=== PATIENT | male | born 1940 | race Asian ===

== ENCOUNTER 2017-09-18 08:37 | Emergency (ER) | payer OTHER ==
--- NOTE | 2017-09-18 08:39 | PDOC ---
History of Present Illness - General Chief Complaint: Injury Stated Complaint: LEFT KNEE INJURY S/P FALL Time Seen by Provider: 09/18/17 08:39 - History of Present Illness Initial Comments: 09/18/17 08:52 77yo male presents ambulatory from home c/o L knee pain. States he was playing with has [employer] last night when he fell landing on the L knee cap. States pain to the L knee. States pain when going up and down stairs, but able to ambulate. Did not take any medication for pain and denies wanting medication now. States he did apply ice to the knee, but pain in the knee over night. Denies all other trauma or complaints. No sutton, neck pain, back pain. No cp/sob/ cough/abd pain/n/v/d. No dysuria. Denies head injury or LOC. NO symptoms prior to falling. States orthopedist is at [facility] PMHx: HTN, HLD, DM Past History - Past Medical History Allergies/Adverse Reactions: Allergies Allergy/AdvReac Type Severity Reaction Status Date / Time cortisone [Cortisone] Allergy Severe Swelling Verified 09/18/17 08:39 NSAIDS (Non-Steroidal AdvReac Intermediate Verified 09/18/17 09:04 Anti-Inflamma Home Medications: Ambulatory Orders Metformin HCl [Metformin HCl ER] 500 mg PO TID 06/19/14 Simvastatin 10 mg PO HS 06/19/14 Gabapentin 0 mg PO HS 05/08/15 Glucosamine Sulfate Dipot Chlr [Glucosamine] 1,000 mg PO BID 05/08/15 Losartan Potassium [Cozaar] 0 mg PO DAILY 05/08/15 Nabumetone [Relafen -] 500 mg PO WEEKLY PRN 05/08/15 New Chapter Prostate 1 PO BID 05/08/15 Anemia: No Asthma: No Cancer: Yes (PROSTATE CANCER-PRESENTLY RECEEIVING RADIATION THERAPY & METFORMIN) Cardiac Disorders: No CVA: No COPD: No CHF: No Dementia: No Diabetes: No GI Disorders: Yes (HX ULCER-BLEEDING 07/2012) Disorders: No HTN: No Hypercholesterolemia: Yes Liver Disease: No Seizures: No Thyroid Disease: No - Surgical History Abdominal Surgery: No Appendectomy: No Cardiac Surgery: No Cholecystectomy: No Lung Surgery: No Neurologic Surgery: No Orthopedic Surgery: No - Immunization History Immunization Up to Date: Yes - Suicide/Smoking/Psychosocial Hx Smoking Status: No Smoking History: Never smoked Have you smoked in the past 12 months: No Number of Cigarettes Smoked Daily: 0 Hx Alcohol Use: No Drug/Substance Use Hx: No Substance Use Type: None Hx Substance Use Treatment: No Review of Systems - Review of Systems Able to Perform ROS?: Yes Is the patient limited Hebrew proficient: No Constitutional: No: Chills, Fever HEENTM: No: Eye Pain, Blurred Vision, Nose Pain, Throat Pain, Throat Swelling Respiratory: No: Cough, Orthopnea, Shortness of Breath Cardiac (ROS): No: Chest Pain, Irregular Heart Rate ABD/GI: No: Diarrhea, Nausea, Vomiting : No: Burning, Dysuria Musculoskeletal: Yes: Joint Pain. No: Back Pain, Joint Swelling, Neck Pain Integumentary: No: Bruising, Erythema, Rash Neurological: No: Headache, Numbness, Paresthesia, Tingling, Weakness, Ataxia All Other Systems: Reviewed and Negative *Physical Exam - Vital Signs 09/18/17 09:33 Selected Entries 09/18/17 08:38 Temperature 97.5 F L Pulse Rate 76 Respiratory 18 Rate Blood Pressure 135/89 Blood Pressure 104 Mean O2 Sat by Pulse 99 Oximetry (%) Weight 72.575 kg - Physical Exam General Appearance: Yes: Nourished, Appropriately Dressed. No: Apparent Distress HEENT: positive: EOMI, Normal ENT Inspection, Normal Voice Neck: positive: Supple. negative: Rigid, Tender midline Respiratory/Chest: positive: Lungs Clear, Normal Breath Sounds. negative: Chest Tender Cardiovascular: positive: Regular Rhythm, Regular Rate, S1, S2 Gastrointestinal/Abdominal: positive: Flat, Soft. negative: Guarding, Rebound, Tenderness Lymphatic: negative: Adenopathy Musculoskeletal: positive: Normal Inspection, Other (no midline ttp, no step offs or deformities). negative: CVA Tenderness Extremity: positive: Normal Capillary Refill, Normal Inspection, Normal Range of Motion, Other (ttp over L knee anteriorly, ttp posterior aspect of knee, no swelling, no effusion, no warmth, no redness, negative anterior and posterior drawer, no ttp along menisci). negative: Pedal Edema, Swelling, Calf Tenderness Integumentary: positive: Normal Color, Dry, Warm. negative: Ecchymosis, Bruising Neurologic: positive: education coordinator II-XII NML intact, Fully Oriented, Alert, Normal Mood/ Affect, Normal Response, Motor Strength 5/5, Other (ambulatory in the ED) Medical Decision Making - Medical Decision Making 09/18/17 08:57 a/p: 77yo male with mechanical fall onto L knee -denies wanting pain medication -will obtain xray -discussed need for follow up with ortho if pain persists 09/18/17 09:33 xray shows small joint effusion and degenerative changes, no acute fractures. pt ambulatory and stable for d/c to home and to follow up with PMD/Ortho. Updated on imaging results. *DC/Admit/Observation/Transfer Diagnosis at time of Disposition: Contusion, knee - Discharge Dispostion Disposition: HOME Condition at time of disposition: Stable Admit: No - Referrals Referrals: Michael Odell MD [Staff Physician] - Freddy Wagner MD [Staff Physician] - - Patient Instructions Printed Discharge Instructions: DI for Knee Pain Additional Instructions: Please apply ice to the knee. Please take tylenol or motrin for pain. Please follow up with your PMD and orthopedist if the pain continues. Please return to the ED with any further concerns. - Post Discharge Activity
[2017-09-18 09:01] VITALS: BP 135/89; PULSE 76; TEMP 97.5; BMI 25.0
== END 2017-09-18 09:42 | disposition home or self-care (01) ==
LOC: FER 08:37
DX: S80.02XA Contusion of left knee, initial encounter (principal); X58.XXXA Exposure to other specified factors, initial encounter; Y93.89 Activity, other specified; Y92.9 Unspecified place or not applicable; E78.00 Pure hypercholesterolemia, unspecified; Z85.46 Personal history of malignant neoplasm of prostate; I10 Essential (primary) hypertension; E11.9 Type 2 diabetes mellitus without complications
CPT/HCPCS: 73562-TC-LT; 99281-25